=== PATIENT | male | born 1965 | race Caucasian/White ===

== ENCOUNTER 2021-08-18 23:21 | Inpatient (IN) | payer OTHER, SELFPAY ==
[2021-08-19 00:03] VITALS: BMI 31.6
[2021-08-19] MEDS ORDERED: Ondansetron PF 4 MG/2 ML Vial IVP PRN (00:43)
[2021-08-19] MEDS ORDERED: Ondansetron ODT 4 MG TAB PO PRN (00:43)
[2021-08-19] MEDS ORDERED: Dextrose 5% in Water 1,000 ML IV PRN (00:43)
[2021-08-19] MEDS ORDERED: Dextrose 50% Abboject 50 ML SYRINGE SLOW IVP PRN (00:43)
[2021-08-19] MEDS ORDERED: Metoprolol Tartrate 5 MG/5 ML VIAL IVP SCH (00:45)
[2021-08-19] MEDS ORDERED: Rib Fracture Protocol PO SCH (00:45)
[2021-08-19] MEDS ORDERED: Cyclobenzaprine 10 MG TAB PO PRN (01:00)
[2021-08-19] MEDS ORDERED: Lactated Ringer's 1,000 ML IV SCH ×2 (01:00)
[2021-08-19] MEDS ORDERED: Electrolyte Replacement Protocol 1 EACH FS SCH (01:00)
[2021-08-19] MEDS ORDERED: traMADol HCl 50 MG TAB PO SCH (01:15)
[2021-08-19] MEDS ORDERED: Acetaminophen 500 MG TAB PO SCH (01:15)
[2021-08-19 05:43] LABS: #Eosinphils 0.1 thou/uL (0.0-0.7); #Lymphocytes 1.8 thou/uL (1.20-3.40); #Monocytes 0.7 thou/uL (0.11-0.59); #Neutrophils 2.5 thou/uL (1.40-6.50); %Basophils 0.9 % (0.0-1.0); %Lymphocytes 35.1 % (21.0-51.0); %Neutrophils 48.9 % (42.0-75.0); Hemoglobin 13.6 g/dL (14.0-18.0); MDiff Complete? YES; Macrocytosis SLIGHT = 6-15 cells (100X) (0-5/hpf); Mean Corpuscular HGB CONC 33.5 g/dL (32.0-36.0); Mean Corpuscular Hemoglobin 35.1 pg (27.0-31.0); Mean Platelet Volume 9.2 fL (7.4-10.4); Platelet Count 95 thou/uL (130-400); Platelet Morphology Comment Appears Decreased; RBC Distribution Width 12.8 % (11.5-14.5); Red Blood Cell (RBC) Count 3.89 mill/uL (4.70-6.10); White Blood Cell (WBC) Count 5.1 thou/uL (4.8-10.8)
[2021-08-19 05:45] LABS: Anion Gap 13 mmol/L (10-20); BUN (Urea Nitrogen) 13 mg/dL (8.4-25.7); Calc. Creatinine Clearance 214 mL/min (70-130); Calcium 8.3 mg/dL (7.8-10.44); Carbon Dioxide 23 mmol/L (22-29); Chloride 105 mmol/L (98-107); Glucose 182 mg/dL (70-105); Magnesium 1.5 mg/dL (1.6-2.6); Potassium 3.4 mmol/L (3.5-5.1); Sodium 138 mmol/L (136-145)
[2021-08-19] MEDS: Acetaminophen 500 MG TAB PO SCH ×3 (06:22→17:48)
[2021-08-19] MEDS: Ibuprofen 200 MG TAB PO SCH ×3 (06:23→21:03)
[2021-08-19] MEDS: traMADol HCl 50 MG TAB PO SCH ×3 (06:24→17:47)
[2021-08-19] MEDS: HumaLOG 300 UNITS/3 ML VIAL SC PRN ×2 (06:25→20:54)
[2021-08-19] MEDS ORDERED: Magnesium 2 GM/50 ML(in water) 2 GM in Premix Bag 1 BAG IVPB SCH (08:00)
[2021-08-19] MEDS ORDERED: Potassium Chloride 20 MEQ TAB PO SCH (08:00)
[2021-08-19] MEDS: Gabapentin 300 MG CAP PO SCH ×3 (08:19→20:50)
[2021-08-19] MEDS: Folic Acid 1 MG TAB PO SCH (08:20)
[2021-08-19] MEDS: Thiamine 100 MG TAB PO SCH (08:20)
[2021-08-19] MEDS: Famotidine 20 MG TAB PO SCH ×2 (08:20→20:52)
[2021-08-19] MEDS ORDERED: Iopamidol-370 76% 500 ML 1 ML ONE (13:20)
[2021-08-19] MEDS: Metoprolol Tartrate 25 MG TAB PO SCH (20:50)
[2021-08-19] MEDS: Enoxaparin Sodium 40 MG/0.4 ML SYRINGE SC SCH (20:52)
[2021-08-20] MEDS: traMADol HCl 50 MG TAB PO SCH ×5 (01:03→23:38)
[2021-08-20] MEDS: Acetaminophen 500 MG TAB PO SCH ×5 (01:04→23:37)
[2021-08-20 05:11] LABS: #Basophils 0.1 thou/uL (0.0-0.2); #Eosinphils 0.1 thou/uL (0.0-0.7); #Lymphocytes 1.5 thou/uL (1.20-3.40); #Monocytes 0.5 thou/uL (0.11-0.59); %Basophils 1.6 % (0.0-1.0); %Lymphocytes 36.3 % (21.0-51.0); %Monocytes 11.3 % (0.0-10.0); %Neutrophils 47.8 % (42.0-75.0); Hemoglobin 14.3 g/dL (14.0-18.0); Mean Corpuscular Hemoglobin 34.4 pg (27.0-31.0); Mean Platelet Volume 9.7 fL (7.4-10.4); Platelet Count 88 thou/uL (130-400); RBC Distribution Width 12.9 % (11.5-14.5); Red Blood Cell (RBC) Count 4.16 mill/uL (4.70-6.10); White Blood Cell (WBC) Count 4.2 thou/uL (4.8-10.8)
[2021-08-20] MEDS: Ibuprofen 200 MG TAB PO SCH ×3 (05:16→21:12)
[2021-08-20 05:22] LABS: Anion Gap 12 mmol/L (10-20); BUN (Urea Nitrogen) 18 mg/dL (8.4-25.7); Calc. Creatinine Clearance 185 mL/min (70-130); Calcium 8.4 mg/dL (7.8-10.44); Carbon Dioxide 28 mmol/L (22-29); Chloride 103 mmol/L (98-107); Glucose 185 mg/dL (70-105); Phosphorus 2.9 mg/dL (2.3-4.7); Potassium 3.8 mmol/L (3.5-5.1); Sodium 139 mmol/L (136-145)
[2021-08-20] MEDS: Folic Acid 1 MG TAB PO SCH (08:30)
[2021-08-20] MEDS: Famotidine 20 MG TAB PO SCH ×2 (08:30→21:13)
[2021-08-20] MEDS: Thiamine 100 MG TAB PO SCH (08:30)
[2021-08-20] MEDS: Gabapentin 300 MG CAP PO SCH ×3 (08:30→21:13)
[2021-08-20] MEDS: Metoprolol Tartrate 25 MG TAB PO SCH ×2 (08:31→21:13)
[2021-08-20] MEDS: Senokot S 8.6-50 MG TAB PO SCH ×2 (10:23→21:13)
[2021-08-20] MEDS: HumaLOG 300 UNITS/3 ML VIAL SC PRN (17:08)
[2021-08-20] MEDS: Enoxaparin Sodium 40 MG/0.4 ML SYRINGE SC SCH (21:13)
[2021-08-20] MEDS ORDERED: Metoprolol Tartrate 5 MG/5 ML VIAL IVP PRN (22:24)
[2021-08-21 05:09] LABS: #Basophils 0.1 thou/uL (0.0-0.2); #Eosinphils 0.2 thou/uL (0.0-0.7); #Lymphocytes 1.8 thou/uL (1.20-3.40); #Monocytes 0.5 thou/uL (0.11-0.59); #Neutrophils 2.1 thou/uL (1.40-6.50); %Basophils 1.2 % (0.0-1.0); %Eosinophils 4.2 % (0.0-10.0); %Lymphocytes 38.5 % (21.0-51.0); %Monocytes 11.1 % (0.0-10.0); Hemoglobin 13.8 g/dL (14.0-18.0); Mean Corpuscular HGB CONC 32.4 g/dL (32.0-36.0); Mean Corpuscular Hemoglobin 34.7 pg (27.0-31.0); Mean Platelet Volume 9.9 fL (7.4-10.4); Platelet Count 83 thou/uL (130-400); RBC Distribution Width 12.7 % (11.5-14.5); Red Blood Cell (RBC) Count 3.98 mill/uL (4.70-6.10); White Blood Cell (WBC) Count 4.8 thou/uL (4.8-10.8)
[2021-08-21] MEDS: traMADol HCl 50 MG TAB PO SCH ×3 (05:24→17:56)
[2021-08-21] MEDS: Acetaminophen 500 MG TAB PO SCH ×3 (05:24→17:55)
[2021-08-21] MEDS: Ibuprofen 200 MG TAB PO SCH ×3 (05:24→23:00)
[2021-08-21 05:31] LABS: Anion Gap 12 mmol/L (10-20); BUN (Urea Nitrogen) 17 mg/dL (8.4-25.7); Calc. Creatinine Clearance 191 mL/min (70-130); Calcium 8.3 mg/dL (7.8-10.44); Carbon Dioxide 26 mmol/L (22-29); Chloride 100 mmol/L (98-107); Glucose 139 mg/dL (70-105); Magnesium 1.7 mg/dL (1.6-2.6); Phosphorus 3.4 mg/dL (2.3-4.7); Potassium 3.6 mmol/L (3.5-5.1); Sodium 134 mmol/L (136-145)
[2021-08-21] MEDS ORDERED: Magnesium 2 GM/50 ML(in water) 2 GM in Premix Bag 1 BAG IVPB SCH (08:00)
[2021-08-21] MEDS: Folic Acid 1 MG TAB PO SCH (08:47)
[2021-08-21] MEDS: Gabapentin 300 MG CAP PO SCH ×3 (08:47→19:59)
[2021-08-21] MEDS: Senokot S 8.6-50 MG TAB PO SCH ×2 (08:47→20:00)
[2021-08-21] MEDS: Metoprolol Tartrate 25 MG TAB PO SCH (08:48)
[2021-08-21] MEDS: Thiamine 100 MG TAB PO SCH (08:48)
[2021-08-21] MEDS: Famotidine 20 MG TAB PO SCH (08:48)
[2021-08-21] MEDS: Apixaban 5 MG TAB PO SCH (19:59)
[2021-08-21] MEDS: Metoprolol Tartrate 50 MG TAB PO SCH (20:00)
[2021-08-22] MEDS: Acetaminophen 500 MG TAB PO SCH ×3 (00:27→13:28)
[2021-08-22] MEDS: traMADol HCl 50 MG TAB PO SCH ×3 (00:28→13:29)
[2021-08-22 04:39] LABS: #Eosinphils 0.2 thou/uL (0.0-0.7); #Lymphocytes 1.8 thou/uL (1.20-3.40); #Monocytes 0.5 thou/uL (0.11-0.59); #Neutrophils 2.2 thou/uL (1.40-6.50); %Eosinophils 3.3 % (0.0-10.0); %Lymphocytes 38.7 % (21.0-51.0); %Monocytes 10.2 % (0.0-10.0); %Neutrophils 46.8 % (42.0-75.0); Hemoglobin 14.1 g/dL (14.0-18.0); Mean Corpuscular HGB CONC 32.9 g/dL (32.0-36.0); Mean Corpuscular Hemoglobin 35.1 pg (27.0-31.0); Mean Platelet Volume 9.4 fL (7.4-10.4); Platelet Count 87 thou/uL (130-400); RBC Distribution Width 12.5 % (11.5-14.5); Red Blood Cell (RBC) Count 4.02 mill/uL (4.70-6.10); White Blood Cell (WBC) Count 4.7 thou/uL (4.8-10.8)
[2021-08-22] MEDS: Ibuprofen 200 MG TAB PO SCH (06:10)
[2021-08-22 08:35] VITALS: BP 165/117; TEMP 97.8
[2021-08-22] MEDS ORDERED: Prevnar 13-Val Conj/PF 0.5 ML SYRINGE IM ONE (09:00)
[2021-08-22] MEDS: Apixaban 5 MG TAB PO SCH (09:19)
[2021-08-22] MEDS: Metoprolol Tartrate 50 MG TAB PO SCH (09:19)
[2021-08-22] MEDS: Senokot S 8.6-50 MG TAB PO SCH (09:19)
[2021-08-22] MEDS: Gabapentin 300 MG CAP PO SCH (09:20)
[2021-08-22] MEDS: Folic Acid 1 MG TAB PO SCH (09:20)
[2021-08-22] MEDS: Thiamine 100 MG TAB PO SCH (09:20)
== END 2021-08-22 12:35 | disposition home or self-care (01) | DRG 206 ==
LOC: 2SW 23:23 → OBSVTOIN 08-19 00:43
PROVIDERS: ADMIT Surgery; ATTEND Surgery
DX: S27.321A Contusion of lung, unilateral, initial encounter (principal); S22.32XA Fracture of one rib, left side, initial encounter for closed fracture; I48.0 Paroxysmal atrial fibrillation; S27.0XXA Traumatic pneumothorax, initial encounter; S40.011A Contusion of right shoulder, initial encounter; E11.9 Type 2 diabetes mellitus without complications; F17.210 Nicotine dependence, cigarettes, uncomplicated; F10.10 Alcohol abuse, uncomplicated; Y90.8 Blood alcohol level of 240 mg/100 ml or more; E86.9 Volume depletion, unspecified; V68.5XXA Driver of heavy transport vehicle injured in noncollision transport accident in traffic accident, initial encounter; Y92.410 Unspecified street and highway as the place of occurrence of the external cause
CPT/HCPCS: 36415; 36416; 70496; 70498; 71045; 71046; 80048; 83036; 83735; 84100; 84484; 85025; 93306; 94640; J1650; J1815; J3475; J7120; J7620; Q9967